=== PATIENT | female | born 1945 | race Caucasian/White ===

== ENCOUNTER 2016-08-11 13:22 | Emergency (ER) | payer MEDICARE, OTHER ==
[2016-08-11] MEDS ORDERED: HYDROMORPHONE HCL INJ/PF 2 MG/ML AMPULE IV ONE (14:08)
--- NOTE | 2016-08-11 14:08 | ER Document Report ---
ED Extremity Problem, Upper - General Mode of Arrival: Medic Information source: Patient - HPI Patient complains to provider of: Injury, Pain, Right, Shoulder Onset: Just prior to arrival Recent injury: Yes Where: Home Context: Fall Associated symptoms: Other - see above <ROB AGUILAR - Last Filed: 08/11/16 14:13> <REMBERTO LATHAM - Last Filed: 08/11/16 16:31> - General Chief Complaint: Shoulder Injury Stated Complaint: FELL/SHOULDER PAIN Notes: 71 year old female with history of idiopathic pulmonary fibrosis, hypertension, hyperlipidemia, and fibromyalgia presents to the ED via EMS complaining of right shoulder and arm pain secondary to falling out of bed earlier this afternoon. Patient reports that her feet were tangled in the bed sheets and she fell directly onto her right shoulder. Patient iced her shoulder, but to no relief. Patient explains that medication given by EMS did not help. Patient is taking 5 mg Methadone 3 times a day for pain. (ROB AGUILAR) - Related Data Allergies/Adverse Reactions: acetaminophen [From Vicodin] Allergy (Verified 06/01/12 19:50) hydrocodone bitartrate [From Vicodin] Allergy (Verified 06/01/12 19:50) paroxetine HCl [From Paxil] Allergy (Verified 06/01/12 19:50) rofecoxib [From Vioxx] Allergy (Verified 06/01/12 19:50) Past Medical History - General Information source: Patient - Social History Smoking Status: Unknown if Ever Smoked Family History: Reviewed & Not Pertinent - Past Medical History Cardiac Medical History: Reports: Hx Hypercholesterolemia, Hx Hypertension Pulmonary Medical History: Reports: Other - Pulmonary fibrosis GI Medical History: Reports: Hx Gastroesophageal Reflux Disease Musculoskeltal Medical History: Reports Hx Fibromyalgia Past Surgical History: Reports: Hx Appendectomy, Hx Cholecystectomy, Hx Hysterectomy, Hx Orthopedic Surgery - bilateral knee replacement <ROB AGUILAR - Last Filed: 08/11/16 14:13> Review of Systems - Review of Systems Constitutional: No symptoms reported EENT: No symptoms reported Cardiovascular: No symptoms reported Respiratory: No symptoms reported Gastrointestinal: No symptoms reported Genitourinary: No symptoms reported Female Genitourinary: No symptoms reported Musculoskeletal: See HPI, Joint pain - right shoulder, Other - right arm pain Skin: No symptoms reported Hematologic/Lymphatic: No symptoms reported Neurological/Psychological: No symptoms reported -: Yes All other systems reviewed and negative <AGUILARROB - Last Filed: 08/11/16 14:13> Physical Exam - General General appearance: Alert In distress: None - HEENT Head: Normocephalic, Atraumatic Eyes: Normal Extraocular movements intact: Yes Pupils: PERRL - Respiratory Respiratory status: No respiratory distress Breath sounds: Normal - Cardiovascular Rhythm: Regular Heart sounds: Normal auscultation Pulses: Decreased: Brachial, Radial - Abdominal Inspection: Morbidly Obese. No: Normal - Back Back: Normal - Extremities General upper extremity: No: Normal inspection - see shoulder exam below General lower extremity: Normal inspection, Normal ROM Shoulder: Other - Left shoulder swelling and tenderness to palpation. No obvious deformity can be visualized.. No: Normal - Neurological Neuro grossly intact: Yes - Psychological Associated symptoms: Normal affect, Normal mood - Skin Skin Temperature: Warm Skin Moisture: Dry Skin Color: Normal <ROB AGUILAR - Last Filed: 08/11/16 14:13> Course <ROB AGUILAR - Last Filed: 08/11/16 14:13> - Diagnostic Test Radiology reviewed: Image reviewed, Reports reviewed - Right shoulder anterior dislocation - Consults Dr. Enriquez Time consulted: 15:30 Consulted provider: will come to ER <REBMERTO LATHAM - Last Filed: 08/11/16 16:31> - Re-evaluation Re-evalutation: 08/11/16 15:02 The patient's x-ray shows an anterior dislocation of the right shoulder. She states the Dilaudid she received from EMS and the 2 mg of Dilaudid IV she received here did not help at all. She does take methadone 5 mg 3 times a day on a chronic basis. I advised her that I did not want to do conscious sedation due to her poor lung function and they would prefer she remained awake even if it is uncomfortable. 08/11/16 16:02 PROCEDURE: The right shoulder was reduced after giving 10 mg of morphine IV, using the technique of abduction, external rotation, then bringing the elbow down while pushing up into the axilla. This accomplished the reduction, the shoulder was passively moved back and forth and the patient agreed that it felt that it was back in place. She remained wide awake and complained of pain during the reduction procedure. While waiting for the portable x-ray to come, the patient moved her arm and caused the shoulder to dislocate again. Repeated attempts trying to reduce the shoulder were unsuccessful in that it would almost go in and slip out. Dr. Toth was contacted and he agreed to come over and used the C-arm to watch the shoulder go back into place. 08/11/16 16:24 Dr. Toth used a C-arm to help him reduce the shoulder. He ended up reducing it and it would fall back out several times. Eventually he got it reduced and got the patient into a shoulder immobilizer. She required an additional 10 mg of morphine and 2 mg of Ativan to control her pain and anxiety and enough to get the shoulder reduced. She remained wide awake the entire time. Her oxygen saturation on 4 L nasal cannula remained at 100%. (REMBERTO LATHAM) - Vital Signs Vital signs: Temp Pulse Resp BP Pulse Ox 98.6 F 71 18 157/65 H 98 08/11/16 14:07 08/11/16 14:07 08/11/16 14:07 08/11/16 14:07 08/11/16 14:07 Discharge <ROB AGUILAR - Last Filed: 08/11/16 14:13> <REMBERTO LATHAM - Last Filed: 08/11/16 16:31> - Discharge Clinical Impression: Anterior shoulder dislocation Qualifiers: Encounter type: initial encounter Laterality: right Qualified Code(s): S43.014A - Anterior dislocation of right humerus, initial encounter Condition: Stable Disposition: HOME, SELF-CARE Additional Instructions: Shoulder Dislocation: You've had a shoulder dislocation. Even after the shoulder is put back in place, careful care is needed to prevent further problems. As the shoulder dislocated, injury to the joint itself occurred. This must be allowed to heal. The usual treatment is a shoulder immobilizing sling. If this is your first dislocation, it must be left in place until the doctor allows you to remove it. This is important. Ice pack the shoulder frequently. One of the most important aspects of care for a shoulder dislocation is mobility exercises and strengthening exercises. You'll start these when it's safe to start moving the shoulder joint. Be sure to keep your follow-up appointments. If you develop numbness in the arm or hand, weakness of the hand muscles, arm swelling, or arm discoloration, call the doctor or return immediately. KEEP THE SHOULDER IMMOBILIZER ON. AVOID MOVING THE RIGHT ARM, HAND OR SHOULDER. USE ICE-PACKS TODAY TO HELP LIMIT SWELLING. CALL DR. TOTH AT [facility] TOMORROW TO SCHEDULE AN APPOINTMENT NEXT WEEK. Referrals: [facility] ([place] [Provider Group] - Follow up tomorrow (CALL TOMORROW FOR AN APPOINTMENT NEXT WEEK.) Scribe Attestation: 08/11/16 16:31 I personally performed the services described in the documentation, reviewed and edited the documentation which was dictated to the scribe in my presence, and it accurately records my words and actions. (REMBERTO LATHAM) Scribe Documentation - Scribe Written by Therese:: Therese Martini, 08/11/2016 1422 acting as scribe for :: [place] <ROB AGUILAR - Last Filed: 08/11/16 14:13>
[2016-08-11] MEDS ORDERED: MORPHINE SULFATE 10 MG/ML INJ IV ONE ×2 (15:01→15:53)
[2016-08-11] MEDS ORDERED: MORPHINE SULFATE 10 MG/ML INJ ONE (15:54)
[2016-08-11] MEDS ORDERED: LORAZEPAM INJ 2 MG/1 ML VIAL IV ONE ×2 (15:57→16:05)
[2016-08-11] MEDS ORDERED: LORAZEPAM INJ 2 MG/1 ML VIAL ONE (15:58)
[2016-08-11 16:57] VITALS: BP 110/55
== END 2016-08-11 16:56 | disposition home or self-care (01) ==
LOC: ER 13:22
PROC: 0RSJXZZ Reposition Right Shoulder Joint, External Approach (ICD-10-PCS; principal; 2016-08-11)
DX: S43.014A Anterior dislocation of right humerus, initial encounter (principal); W06.XXXA Fall from bed, initial encounter; Y92.003 Bedroom of unspecified non-institutional (private) residence as the place of occurrence of the external cause; M25.511 Pain in right shoulder; M79.601 Pain in right arm; F41.9 Anxiety disorder, unspecified; M79.7 Fibromyalgia; I10 Essential (primary) hypertension; Z79.891 Long term (current) use of opiate analgesic; Z88.5 Allergy status to narcotic agent; Z88.8 Allergy status to other drugs, medicaments and biological substances; J84.112 Idiopathic pulmonary fibrosis
CPT/HCPCS: 23650; 96376; 99284; 96374; 96375; 73020; 73030; L3650; J2270; J1170; J2060

== ENCOUNTER → 2016-11-08 | Outpatient (CLI) | payer MEDICARE, OTHER ==
[~2016-11-08] MED LIST: ALBUTEROL SULFATE 0.083% NEB 2.5 MG/3 ML AMPUL NEB ONE
--- NOTE | 2016-11-10 17:31 | Pulmonary Function Test ---
Pulmonary Function Test Date of Procedure:: 11/10/16 INDICATION:: Dyspnea Referring Provider: Dr. Issa [employer] Shaver Mechanic: Keena Best SLIPMAN - Report Spirometry: FVC 1.96 L 75% postbronchodilator therapy 2.07 L 79% FEV1 1.39 L 67% postbronchodilator therapy 1.44 L 69% FEV1/FVC % 71 postbronchodilator therapy 69 predicted 82 Lung Volume: Total lung capacity 2.87 L 65% Vital capacity 1.96 L 75% Inspiratory capacity 1.41 FRC N2 1.46 69% ERV 0.34 RV 0.91 51% RV/TLC % 32 predicted 41 Diffusion Capactity: DLCO 9.2 43% DLCO/VA 3.66 102% Impression: Mild obstructive ventilatory defect. Insignificant response to bronchodilator therapy. This does not preclude a clinical trial of bronchodilator therapy. Mild restrictive ventilatory defect. No hyperinflation or no air trapping. Severe decrease in diffusion capacity.
== END ==
LOC: RT 13:35
PROVIDERS: ATTEND Internal Medicine Pulmonary Disease
DX: J84.112 Idiopathic pulmonary fibrosis (principal)
CPT/HCPCS: 94729; 94727; 94060; A9270